=== PATIENT | male | born 1970 | race Caucasian/White ===

== ENCOUNTER 2016-09-25 18:31 | Emergency (ER) | payer SELFPAY ==
[~2016-09-25] VITALS: Ht 167.6 cm; Wt 80.0 kg
[~2016-09-25 18:31] MED LIST: DOXY100T PO; SULF1TAB47 PO; TRAM50 PO; Z.0.NO CURRENT MEDS
[2016-09-25 18:36] VITALS: BP 160/96; PULSE 97; RESP 22; TEMP 97.7; O2SAT 96
[2016-09-25] MEDS ORDERED: SODIUM CHLORIDE 0.9% FLUSH 5 ML FLUSH IVF PRN (18:45)
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
[2016-09-25 19:13] LABS: AUTOMATED NEUTROPHIL # 2.7 TH/MM3 (1.8-7.7); BASOPHIL % 0.5 % (0.0-2.0); EOSINOPHIL # 0.3 TH/MM3 (0-0.4); EOSINOPHIL % 4.8 % (0.0-4.0); HEMATOCRIT 48.1 % (39.0-51.0); HEMO FLAGS DIFF FINAL; LYMPH % 41.2 % (9.0-44.0); LYMPHOCYTE # 2.5 TH/MM3 (1.0-4.8); MEAN CELL VOLUME 90.5 FL (80.0-100.0); MEAN CORPUSCULAR HGB CONC 35.4 % (32.0-36.0); MONO % 9.9 % (0.0-8.0); NEUT % 43.6 % (16.0-70.0); PLATELET COUNT 234 TH/MM3 (150-450); RED BLOOD COUNT 5.32 MIL/MM3 (4.50-5.90); WHITE BLOOD COUNT 6.2 TH/MM3 (4.0-11.0)
--- NOTE | 2016-09-25 19:15 | PD ---
Physical Exam Narrative General: The patient is a well-developed, somewhat disheveled appearing male, drowsy on examination. He is able to be awakened with voice, however he quickly falls back to sleep. The patient according to the records received Ativan 2 mg IM for a seizure prior to arrival. Head and Neck exam: Head is normocephalic atraumatic. Eyes: EOMI, pupils are equal round and reactive to light. Nose: Midline septum with pink mucous membranes Mouth: Dentition unremarkable. Moist mucus membranes. Posterior oropharynx is not erythematous. No tonsillar hypertrophy. Uvula midline. Airway patent. Neck: No palpable lymphadenopathy. No nuchal rigidity. No thyromegaly. Cardiovascular: Regular rate and rhythm without murmurs, gallops, or rubs. Lungs: Clear to auscultation bilaterally. No wheezes, rhonchi, or rales. Abdomen: Soft, without tenderness to palpation in all 4 quadrants of the abdomen. No guarding, rebound, or rigidity. Normal bowel sounds are audible Extremities: No clubbing, cyanosis, or edema. Neurologic Exam: Cranial nerves 2-12 were intact on exam. Strength is 5/5 in all 4 extremities. No sensory deficits noted. The patient is oriented to person, place, time, and situation, however he is drowsy. Skin Exam: The patient on examination has scattered erythematous papules over his trunk, the hands, arms. These appear suspicious for rabies. He reports that he has had scabies in the past. He reports that the rash is extremely itchy. Data Data Last Documented VS Vital Signs Date Time Temp Pulse Resp B/P Pulse Ox O2 Delivery O2 Flow Rate FiO2 09/25/16 22:00 100 17 126/71 100 Nasal Cannula 2 09/25/16 18:36 97.7 Orders Complete Blood Count With Diff (09/25/16 18:36) Basic Metabolic Panel (Bmp) (09/25/16 18:36) Ct Brain W/O Iv Contrast(Rout) (09/25/16 ) Blood Glucose (09/25/16 18:36) Ecg Monitoring (09/25/16 18:36) Iv Access Insert/Monitor (09/25/16 18:36) Oximetry (09/25/16 18:36) Sodium Chloride 0.9% Flush (Ns Flush) (09/25/16 18:45) Ct Cerv Spine W/O Contrast (09/25/16 ) Sodium Chlor 0.9% 1000 Ml Inj (Ns 1000 M (09/25/16 20:30) Blood Glucose (09/25/16 20:24) Thiamine Inj (Thiamine Inj) (09/25/16 21:30) Insulin Human Regular Inj (Novolin R Inj (09/25/16 21:30) Electrocardiogram (09/25/16 18:45) Labs Laboratory Tests Test 09/25/16 18:45 White Blood Count 6.2 TH/MM3 Red Blood Count 5.32 MIL/MM3 Hemoglobin 17.0 GM/DL Hematocrit 48.1 % Mean Corpuscular Volume 90.5 FL Mean Corpuscular Hemoglobin 32.0 PG Mean Corpuscular Hemoglobin 35.4 % Concent Red Cell Distribution Width 14.0 % Platelet Count 234 TH/MM3 Mean Platelet Volume 7.1 FL Neutrophils (%) (Auto) 43.6 % Lymphocytes (%) (Auto) 41.2 % Monocytes (%) (Auto) 9.9 % Eosinophils (%) (Auto) 4.8 % Basophils (%) (Auto) 0.5 % Neutrophils # (Auto) 2.7 TH/MM3 Lymphocytes # (Auto) 2.5 TH/MM3 Monocytes # (Auto) 0.6 TH/MM3 Eosinophils # (Auto) 0.3 TH/MM3 Basophils # (Auto) 0.0 TH/MM3 CBC Comment DIFF FINAL Differential Comment Sodium Level 135 MEQ/L Potassium Level 3.8 MEQ/L Chloride Level 95 MEQ/L Carbon Dioxide Level 27.1 MEQ/L Anion Gap 13 MEQ/L Blood Urea Nitrogen 5 MG/DL Creatinine 0.82 MG/DL Estimat Glomerular Filtration 101 ML/MIN Rate Random Glucose 345 MG/DL Calcium Level 9.2 MG/DL [facility] Medical Record Reviewed: Yes Supervised Visit with KIA: No Interpretation(s) Laboratory Tests Test 09/25/16 18:45 White Blood Count 6.2 TH/MM3 Red Blood Count 5.32 MIL/MM3 Hemoglobin 17.0 GM/DL Hematocrit 48.1 % Mean Corpuscular Volume 90.5 FL Mean Corpuscular Hemoglobin 32.0 PG Mean Corpuscular Hemoglobin 35.4 % Concent Red Cell Distribution Width 14.0 % Platelet Count 234 TH/MM3 Mean Platelet Volume 7.1 FL Neutrophils (%) (Auto) 43.6 % Lymphocytes (%) (Auto) 41.2 % Monocytes (%) (Auto) 9.9 % Eosinophils (%) (Auto) 4.8 % Basophils (%) (Auto) 0.5 % Neutrophils # (Auto) 2.7 TH/MM3 Lymphocytes # (Auto) 2.5 TH/MM3 Monocytes # (Auto) 0.6 TH/MM3 Eosinophils # (Auto) 0.3 TH/MM3 Basophils # (Auto) 0.0 TH/MM3 CBC Comment DIFF FINAL Differential Comment Sodium Level 135 MEQ/L Potassium Level 3.8 MEQ/L Chloride Level 95 MEQ/L Carbon Dioxide Level 27.1 MEQ/L Anion Gap 13 MEQ/L Blood Urea Nitrogen 5 MG/DL Creatinine 0.82 MG/DL Estimat Glomerular Filtration 101 ML/MIN Rate Random Glucose 345 MG/DL Calcium Level 9.2 MG/DL Last Impressions Head CT 09/25/16 0000 Signed Impressions: Service Date/Time: Sunday, September 25, 2016 19:00 - CONCLUSION: No acute intracranial abnormality. Sinusitis and apparent left mastoiditis. Maikel Padilla MD Cervical Spine CT 09/25/16 0000 Signed Impressions: Service Date/Time: Sunday, September 25, 2016 19:00 - CONCLUSION: Intact cervical spine. Mild multilevel degenerative changes. Maikel Padilla MD Narrative Course During the course of the patients emergency department visit, the patients history, examination, and differential diagnosis were reviewed with the patient. The patient had IV access obtained and blood work sent for analysis. The patient was initially evaluated by Dr. Rodriguez. Please see her complete history and physical. The patient's case was checked out to me at the conclusion of her shift. The patient is a 46-year-old male who presents to [facility] emergency Department with a history of seizure activity. The patient reports that he has had seizures in the past, however he denies being on any medication previously. The patient also reports having diabetes mellitus, however he was told that he did not require medicine for it. He denies having a primary care physician. He reports that he is homeless. The patient was medicated with Ativan 2 mg IM prior to arrival. The patient was provided normal saline 1 L IV fluid bolus and thiamine 100 mg IV. The patient was placed on a language assistant with oximetry and blood pressure monitoring. The patients laboratory studies were reviewed and remarkable for white count 6.2, hemoglobin 17, platelets 234 with 9.9 monocytes. Basic metabolic profile is remarkable for a sodium of 135, chloride 95, BUN 5, glucose 345. This will be repeated and treated if it continues to be elevated. Radiology studies were reviewed and remarkable for a CT scan of the brain that shows no acute intracranial abnormality, however the patient does have sinusitis and an apparent left mastoiditis according to the reading radiologist. CT scan of the C-spine shows an intact cervical spine, mild multilevel degenerative changes, no other acute abnormality. The patient was reexamined. The patient on examination has no tenderness on palpation of the left mastoid. The patient has wax present in bilateral ears on examination although a portion of each tympanic membrane is able to be visualized and no evidence of effusion is noted, no erythema. I spoke to Dr. Padilla at approximate 9:08 PM regarding this patient's case and the mention of mastoiditis on the left side. Given the fact that the patient has no tenderness on palpation he reports that he does often times see some fluid in the mastoid air cells which is more chronic in nature. The patient will be observed in the emergency department until he is more awake and alert due to sedation with Ativan was provided earlier along with his likely alcohol intoxication given his reported history of drinking a half a gallon of liquor daily. The patient's repeat blood sugar was found to be 345. The patient was given regular insulin 9 units subcutaneously 1. The patient's blood sugar began to improve. The patient became increasingly awake and alert and was able to provide more history. The patient's rash is consistent with scabies. The patient reports that he does not have a local doctor, therefore he was instructed to follow-up with patient assistance. The patient was given a prescription for Elimite at discharge. The patient was instructed regarding the importance of following up with an outpatient primary care doctor for establishing related to his diabetes. As the patient drinks alcohol heavily on a daily basis, metformin administration would be contraindicated. I'm also concerned about episodes of hypoglycemia on a sulfonylurea, therefore the prescription was not given for this at this time. I recommended close follow- up with a physician. The patient will be given a mandatory follow-up through the system with outpatient referral doctor for patient assistance.. The patient is resting comfortably and feels better, is alert and in no distress. The patients results and examination findings were discussed with the patient. The repeat examination is unremarkable and benign. The history, exam, diagnostic testing, and current condition do not suggest any significant pathology to warrant further testing, continued ED treatment, admission, or surgical evaluation at this point. The vital signs have been stable. The patient does not have uncontrollable pain, intractable vomiting, or other significant symptoms. The patient's condition is stable and appropriate for discharge. The patient will pursue further outpatient evaluation with a primary care physician or other designated or consulting physician as indicated in the discharge instructions. The patient expressed understanding and was agreeable with this plan. Diagnosis Primary Impression: Seizure-like activity Additional Impressions: Altered mental status Qualified Code: R40.0 - Somnolence Hyperglycemia due to type 2 diabetes mellitus Qualified Code: E11.65 - Type 2 diabetes mellitus with hyperglycemia, without long-term current use of insulin Scabies infestation Referrals: [facility] Patient Assistance Program 2 days [facility] Dept. Patient Instructions: General Instructions Med/Other Pt SpecificInfo: Prescription(s) given Scripts Permethrin Topical (Elimite Topical)5% Cream1 Applic TOPICAL ONCE #1 TUBE Ref 0 Prov:Suzanna Howell MD 09/26/16 Disposition: 01 DISCHARGE HOME Condition: Stable Suzanna Howell MD Sep 25, 2016 19:15
--- NOTE | 2016-09-25 19:16 | RADRPT ---
EXAM DATE/TIME: 09/25/2016 19:00 [facility] COMPARISON: No previous studies available for comparison. INDICATIONS : Seizure. RADIATION DOSE: 43.75 CTDIvol (mGy) MEDICAL HISTORY : Seizures. SURGICAL HISTORY : None. ENCOUNTER: Initial ACUITY: 1 day PAIN SCALE: Non-responsive LOCATION: cranial TECHNIQUE: Multiple contiguous axial images were obtained of the head. Using automated exposure control and adj ustment of the mA and/or kV according to patient size, radiation dose was kept as low as reasonably a chievable to obtain optimal diagnostic quality images. FINDINGS: CEREBRUM: The ventricles are normal for age. No evidence of midline shift, mass lesion, hemorrhage or acute in farction. No extra-axial fluid collections are seen. POSTERIOR FOSSA: The cerebellum and brainstem are intact. The 4th ventricle is midline. The cerebellopontine angle i s unremarkable. EXTRACRANIAL: There is mucoperiosteal thickening of the visualized paranasal sinuses, especially the maxillary air cells. The left mastoid air cells are also partly opacified. SKULL: The calvaria is intact. No evidence of skull fracture. CONCLUSION: No acute intracranial abnormality. Sinusitis and apparent left mastoiditis. Maikel Padilla MD on September 25, 2016 at 19:13 Board Certified Radiologist. This report was verified electronically.
[2016-09-25 19:27] VITALS: BP 135/78; PULSE 92; RESP 16; O2SAT 95
[2016-09-25 19:48] LABS: BICARBONATE 27.1 MEQ/L (21.0-32.0); POTASSIUM 3.8 MEQ/L (3.5-5.1)
--- NOTE | 2016-09-25 20:15 | RADRPT ---
EXAM DATE/TIME: 09/25/2016 19:00 [facility] COMPARISON: No previous studies available for comparison. INDICATIONS : Trauma; seizure. RADIATION DOSE: 21.24 CTDIvol (mGy) MEDICAL HISTORY : Seizures. SURGICAL HISTORY : None. ENCOUNTER: Initial ACUITY: 1 day PAIN SCALE: Non-responsive LOCATION: neck TECHNIQUE: Volumetric scanning of the cervical spine was performed. Multiplanar reconstructions in the sagittal, coronal and oblique axial planes were performed. Using automated exposure control and adjustment o f the mA and/or kV according to patient size, radiation dose was kept as low as reasonably achievable to obtain optimal diagnostic quality images. FINDINGS: No fracture or subluxation demonstrated of the cervical spine. Vertebral bodies have normal height. T here is mild disc space narrowing and mild uncovertebral and facet osteoarthritis at essentially all levels. No significant foraminal or spinal stenosis demonstrated. CONCLUSION: Intact cervical spine. Mild multilevel degenerative changes. Maikel Padilla MD on September 25, 2016 at 20:12 Board Certified Radiologist. This report was verified electronically.
[2016-09-25] MEDS ORDERED: SODIUM CHLOR 0.9% 1000 ML INJ 1,000 ML IV ONE (20:30)
[2016-09-25] MEDS ORDERED: THIAMINE INJ 100 MG in SODIUM CHLORIDE 0.9% INJ 100 ML IV ONE (21:30)
[2016-09-25] MEDS ORDERED: INSULIN HUMAN REGULAR 1,000 UNITS/10 ML VIAL SQ ONE (21:30)
[2016-09-25 22:00] VITALS: BP 126/71; PULSE 100; RESP 17; O2SAT 100
[2016-09-26] MEDS ORDERED: PERM5CRE11 TOPICAL (00:38)
--- NOTE | 2016-09-26 13:02 | EKG ---
Date Performed: 09/25/2016 Time Performed: 18:45:41 PTAGE: 46 years EKG: Sinus rhythm WITH SINUS ARRHYTHMIA NONDIAGNOSTIC INFERIOR Q WAVES ABNORMAL ECG NO PREVIOUS TRACING DOCTOR: Fabrice Rowe Interpretating Date/Time 09/26/2016 13:00:54
== END 2016-09-26 01:35 | disposition home or self-care (01) ==
LOC: NEPE 18:31
DX: R46.89 Other symptoms and signs involving appearance and behavior (principal); R40.0 Somnolence; E11.65 Type 2 diabetes mellitus with hyperglycemia; B86 Scabies; R94.31 Abnormal electrocardiogram [ECG] [EKG]; Z59.0 Homelessness; Z86.59 Personal history of other mental and behavioral disorders
CPT/HCPCS: 70450; 72125; 80048; 85025; 93005; 96365; 96372; 99284; J1815; J3411; J7030